=== PATIENT | female | born 1990 | race Caucasian/White ===

== ENCOUNTER 2018-09-08 16:53 | Outpatient (CLI) | payer OTHER ==
--- NOTE | 2018-09-09 12:40 | Ultrasound Report ---
Reason: TEST POSITIVE Procedure Date: 09/08/2018 Accession Number: [id number] / [id number] Procedure: US - OB First Trimester CPT Code: FULL RESULT: EXAM: FIRST TRIMESTER OBSTETRIC ULTRASOUND (Less than 11 weeks) EXAM DATE: 09/08/2018 06:41 PM. CLINICAL HISTORY: TEST POSITIVE. LMP: Unknown. COMPARISONS: None. TECHNIQUE: Transabdominal and transvaginal ultrasound examination with static image documentation. CLINICAL DATES: EGA 10 weeks 6 days with DOROTHY 03/31/2019 based on LMP. ASSESSMENT: Gestational Sac: Single intrauterine. Mean gestational sac diameter: 18.5 mm = 6 weeks 6 days. Embryo: CRL (crown-rump length) 8.7 mm = 6 weeks 6 days. Cardiac activity: 133 beats per minute. Yolk sac: 3.8 mm. Amniotic fluid: Not accurately assessed at this gestational age. Early placenta: Not visible at this gestational age. Other: No perigestational fluid collection demonstrated. MATERNAL STRUCTURES: Uterus: Anteverted. Unremarkable. Cervix: Closed. Right Ovary/Adnexa: The ovary measures 3.5 x 3.5 x 2.7 cm, volume 17.4 cc. Unremarkable. Left Ovary/Adnexa: The ovary measures 2.7 x 1.3 x 1.0 cm, volume 1.8 cc. Unremarkable. Free Fluid: None. Other: None. IMPRESSION: 1. Single viable intrauterine at EGA 6 weeks 6 days with DOROTHY 04/28/2019 based on crown-rump length, which is discordant with clinical dates. 2. Assigned dating is DOROTHY 04/28/2019 based on current ultrasound. RADIA
== END 2018-09-08 16:54 | disposition home or self-care (01) ==
LOC: DI 16:53
PROVIDERS: ATTEND Obstetrics & Gynecology
DX: Z32.01 Encounter for pregnancy test, result positive (principal)
CPT/HCPCS: 76801; 76817

== ENCOUNTER 2018-09-16 16:44 | Outpatient (CLI) | payer OTHER ==
[2018-09-16 20:12] LABS: MUDS CUTOFF CONCENTRATIONS CUTOFF CONC BELOW:
[2018-09-16 20:38] LABS: BILIRUBIN,URINE NEGATIVE (NEGATIVE); GLUCOSE, URINE (UA) NEGATIVE (NEGATIVE); KETONES,URINE (UA) NEGATIVE (NEGATIVE); LEUKOCYTE ESTERASE, URINE NEGATIVE (NEGATIVE); NITRITE,URINE NEGATIVE (NEGATIVE); OCCULT BLOOD,URINE NEGATIVE (NEGATIVE); PROTEIN,URINE NEGATIVE (NEGATIVE); UROBILINOGEN,URINE 0.2 (NORMAL) E.U./dL (NORMAL)
[2018-09-16 20:44] LABS: CLARITY,URINE HAZY (CLEAR)
[2018-09-16 20:46] LABS: AMPHETAMINE SCREEN,URINE NEGATIVE (NEGATIVE); BENZODIAZEPINES SCREEN, URINE NEGATIVE (NEGATIVE); COCAINE SCREEN URINE NEGATIVE (NEGATIVE); METHADONE SCREEN, URINE NEGATIVE (NEGATIVE); METHAMPHETAMINES SCREEN, URINE NEGATIVE (NEGATIVE); OPIATE SCREEN, URINE NEGATIVE (NEGATIVE); OXYCODONE SCREEN, URINE NEGATIVE (NEGATIVE); PROPOXYPHENE SCREEN, URINE NEGATIVE (NEGATIVE); TRICYCLIC ANTIDEPRESSANT,URINE NEGATIVE (NEGATIVE)
[2018-09-16 20:51] LABS: BACTERIA,URINE Moderate /HPF (None Seen); RBC,URINE None Seen /HPF (0-5); SQUAMOUS EPITHELIAL CELL,UR MOD Squamous (<= Few)
== END 2018-09-16 23:59 | disposition home or self-care (01) ==
LOC: LAB.R 16:44
PROVIDERS: ATTEND Obstetrics & Gynecology
DX: Z36.89 Encounter for other specified antenatal screening (principal)
CPT/HCPCS: 80306; 81001; 87086; 87491; 87591; 87661

== ENCOUNTER 2018-09-16 16:54 | Outpatient (CLI) | payer OTHER ==
[2018-09-16 22:30] LABS: TRICHOMONAS VAGINALIS DNA NEGATIVE (NEGATIVE)
== END 2018-09-16 23:59 | disposition home or self-care (01) ==
LOC: LAB.R 16:54
PROVIDERS: ATTEND Obstetrics & Gynecology
DX: Z36.89 Encounter for other specified antenatal screening (principal)
CPT/HCPCS: 87491; 87591; 87661

== ENCOUNTER 2018-10-22 16:10 | Outpatient (CLI) | payer OTHER ==
[2018-10-22 16:43] LABS: BASOPHILS % (AUTO) 0.3 %; EOSINOPHILS # (AUTO) 0.1 10^3/uL (0.0-0.7); EOSINOPHILS % (AUTO) 0.4 %; HGB - HEMOGLOBIN 12.4 g/dL (12.0-16.0); LYMPHOCYTES # (AUTO) 3.3 10^3/uL (1.5-3.5); LYMPHOCYTES % (AUTO) 27.9 %; MEAN CORPUSCULAR HEMOGLOBIN 30.2 pg (27.0-31.0); MEAN PLATELET VOLUME 9.4 fL (7.9-10.8); MONOCYTES # (AUTO) 0.7 10^3/uL (0.0-1.0); MONOCYTES % (AUTO) 5.8 %; NEUTROPHILS # (AUTO) 7.6 10^3/uL (1.5-6.6); NEUTROPHILS % (AUTO) 65.1 %; PLT - PLATELET COUNT 334 10^3/uL (130-450); RED CELL DISTRIBUTION WIDTH 12.4 % (12.0-15.0); WHITE BLOOD COUNT 11.7 x10^3/uL (4.8-10.8)
[2018-10-25 10:32] LABS: HIV AG/AB 4TH GEN NON-REACTIVE (NON-REACTIVE)
[2018-10-25 13:17] LABS: HEPATITIS B SURFACE ANTIGEN NON-REACTIVE (NON-REACTIVE)
[2018-10-25 20:26] LABS: HCV RNA QNT <1.18 NOT DETECTED Log IU/mL (NOT DETECTED); HCV RNA QUANT RT PCR <15 NOT DETECTED IU/mL (NOT DETECTED)
== END 2018-10-22 16:11 | disposition home or self-care (01) ==
LOC: LAB 16:10
PROVIDERS: ATTEND Obstetrics & Gynecology
DX: Z36.89 Encounter for other specified antenatal screening (principal)
CPT/HCPCS: 36415; 81599; 85025; 86592; 86762; 86850; 86900; 86901; 87340; 87389; 87522

== ENCOUNTER 2019-02-11 11:49 | Outpatient (CLI) | payer OTHER ==
[2019-02-11 18:56] LABS: BASOPHILS % (AUTO) 0.3 %; EOSINOPHILS # (AUTO) 0.1 10^3/uL (0.0-0.7); EOSINOPHILS % (AUTO) 0.4 %; HGB - HEMOGLOBIN 10.9 g/dL (12.0-16.0); LYMPHOCYTES # (AUTO) 2.3 10^3/uL (1.5-3.5); LYMPHOCYTES % (AUTO) 17.2 %; MEAN CORPUSCULAR HEMOGLOBIN 28.7 pg (27.0-31.0); MEAN CORPUSCULAR HGB CONC 30.3 g/dL (32.0-36.0); MEAN CORPUSCULAR VOLUME 94.7 fL (81.0-99.0); MEAN PLATELET VOLUME 9.6 fL (7.9-10.8); MONOCYTES # (AUTO) 0.6 10^3/uL (0.0-1.0); MONOCYTES % (AUTO) 4.7 %; NEUTROPHILS # (AUTO) 9.9 10^3/uL (1.5-6.6); PLT - PLATELET COUNT 318 10^3/uL (130-450); RED CELL DISTRIBUTION WIDTH 13.5 % (12.0-15.0); WHITE BLOOD COUNT 13.1 x10^3/uL (4.8-10.8)
== END 2019-02-11 23:59 | disposition home or self-care (01) ==
LOC: LAB.WCP 11:49
PROVIDERS: ATTEND Obstetrics & Gynecology
DX: Z36.89 Encounter for other specified antenatal screening (principal)
CPT/HCPCS: 82950; 85025

== ENCOUNTER 2019-02-21 07:48 | Outpatient (CLI) | payer OTHER | END 2019-02-21 07:49 | disposition home or self-care (01) | LOC: LAB 07:48 | PROVIDERS: ATTEND Obstetrics & Gynecology | DX: O99.810 Abnormal glucose complicating pregnancy (principal); Z3A.00 Weeks of gestation of pregnancy not specified | CPT/HCPCS: 36415; 82951; 82952 ==

== ENCOUNTER 2019-03-22 09:52 | Outpatient (CLI) | payer OTHER | END 2019-03-22 09:53 | disposition home or self-care (01) | LOC: NS 09:52 | PROVIDERS: ATTEND Obstetrics & Gynecology | DX: Z53.9 Procedure and treatment not carried out, unspecified reason (principal) ==

== ENCOUNTER 2019-03-29 08:00 | Outpatient (CLI) | payer OTHER ==
[2019-03-30 22:09] LABS: TRICHOMONAS VAGINALIS DNA NEGATIVE (NEGATIVE)
== END 2019-03-29 23:59 | disposition home or self-care (01) ==
LOC: LAB.R 08:00
PROVIDERS: ATTEND Obstetrics & Gynecology
DX: Z36.85 Encounter for antenatal screening for Streptococcus B (principal); Z36.89 Encounter for other specified antenatal screening
CPT/HCPCS: 87491; 87591; 87661; 87797

== ENCOUNTER 2019-04-09 08:18 | Outpatient (CLI) | payer OTHER ==
--- NOTE | 2019-04-11 16:09 | Ultrasound Report ---
Reason: GESTATIONAL DIABETES Procedure Date: 04/09/2019 Accession Number: [id number] / [id number] Procedure: US - OB F/U or Repeat CPT Code: Final Report FULL RESULT: EXAM: FOLLOW-UP OBSTETRICAL ULTRASOUND EXAM DATE: 04/09/2019 09:11 AM. CLINICAL HISTORY: GESTATIONAL DIABETES. COMPARISON: 09/08/2018. TECHNIQUE: Real-time sonographic evaluation of the fetus performed by the organ pipe maker metal. Multiple guest services representative static images were saved for review. DATING: Established EGA 37 weeks 2 days with DOROTHY 04/28/2019 based on first ultrasound. EGA 41 weeks 2 days with DOROTHY 03/31/2019 based on LMP. EGA 36 weeks 6 days with DOROTHY 05/01/2019 based on the current ultrasound. GENERAL EVALUATION Broussard . Cardiac activity: 158 bpm. movement: Visualized. Presentation: Cephalic. Placenta: Anterior, with a succenturiate lobe posterolaterally. Amniotic fluid: Normal. CL 13.5 cm. MVP 7.4 cm. BIOMETRY Bi-Parietal Diameter (BPD): 9.2 cm, 37 weeks 3 days Head Circumference (HC): 32.8 cm, 37 weeks 2 days Abdominal Circumference (AC): 32.9 cm, 36 weeks 5 days Femur Length (FL): 7.0 cm, 35 weeks 6 days Estimated Weight: 3001 g, 42.2nd percentile for 37 weeks 2 days. ANATOMY Grossly unremarkable. MATERNAL STRUCTURES Grossly unremarkable. Uterine cervix measures about 3.7 cm, closed. IMPRESSION: 1. Broussard live intrauterine with gestational age 37 weeks 2 days based on established dating. 2. Estimated weight is within expected limits for assigned dating. 3. Normal interval growth compared to previous study. 4. Normal CL. 5. Accessory placental lobe. RADIA
== END 2019-04-09 08:19 | disposition home or self-care (01) ==
LOC: DI 08:18
PROVIDERS: ATTEND Obstetrics & Gynecology
DX: O24.419 Gestational diabetes mellitus in pregnancy, unspecified control (principal); O09.93 Supervision of high risk pregnancy, unspecified, third trimester; Z3A.37 37 weeks gestation of pregnancy
CPT/HCPCS: 76816

== ENCOUNTER 2019-07-30 11:18 | Outpatient (CLI) | payer OTHER ==
--- NOTE | 2019-07-30 15:19 | Ultrasound Report ---
Reason: IUD SURVEILLANCE Procedure Date: 07/30/2019 Accession Number: [id number] / [id number] Procedure: US - Pelvic w/Transvaginal CPT Code: Final Report FULL RESULT: EXAM: PELVIC ULTRASOUND EXAM DATE: 07/30/2019 12:11 PM. CLINICAL HISTORY: IUD surveillance. Mirena IUD placed 06/23/2019. Vaginal bleeding for 22 days. LMP 07/08/2019. G1, P1. COMPARISON: None. TECHNIQUE: Realtime transabdominal pelvic scan performed to identify the uterus and adnexa and as an overview of other pelvic structures, followed by transvaginal scan to provide greater detail of the uterus and adnexa, with static image documentation. FINDINGS: Uterus: 7.9 x 3.6 x 5.1 cm, volume 77 cc. Anteverted position. Normal overall uterine volume. Masses: None. Endometrium: 4 mm. Intrauterine device is present centrally located in the endometrial cavity in expected position in the mid body and fundus of the uterus. On real-time cine images, the endometrium is dynamic with motion noted typically seen with blood products/complex fluid. No increased vascularity. Along the inferior aspect of the intrauterine device is an echogenic area noted measuring up to 0.6 cm which may represent a calcification or possibly a portion of the intrauterine device possibly the string which may be clumped or coiled. Cervix: In the cervix is small volume of complex hypoechoic fluid which may represent small volume of blood products/complex fluid. Nabothian cyst noted. Right Ovary: 3.9 x 3.5 x 2.7 cm, volume 19.8 cc. Normal echotexture. Normal blood flow. Within the right ovary is a 3.3 x 2.3 x 2.4 cm with small endocysts/daughter cysts. No increased vascularity. Left Ovary: Left ovary is only seen transabdominally and measures 2.3 x 1.3 x 2 cm, volume 3.1 cc. Normal echotexture and blood flow. Free Fluid: None. Other: None. IMPRESSION: 1. Normal uterine volume. 2. Intrauterine device in expected position. 3. Dynamic endometrium which most likely represent blood products/complex fluid, also seen within the endocervical canal. 4. Normal ovaries with a 3.3 cm dominant right ovarian follicular cyst. RADIA
== END 2019-07-30 11:19 | disposition home or self-care (01) ==
LOC: DI 11:18
PROVIDERS: ATTEND Obstetrics & Gynecology
DX: Z30.431 Encounter for routine checking of intrauterine contraceptive device (principal); N83.01 Follicular cyst of right ovary
CPT/HCPCS: 76830; 76856